=== PATIENT | male | born 1965 | race Caucasian/White ===

== ENCOUNTER 2016-12-02 12:12 | Emergency (ER) | payer MEDICAID ==
[~2016-12-02] VITALS: Ht 180.3 cm; Wt 84.0 kg
[~2016-12-02 12:12] MED LIST: ALBU6.7H INH; TRAM50TA3 PO
[2016-12-02] MEDS ORDERED: QUET300T2 PO (12:32)
[2016-12-02] MEDS ORDERED: CITA20TA19 PO (12:32)
[2016-12-02 13:58] VITALS: BP 121/68
== END 2016-12-02 16:23 | disposition home or self-care (01) ==
LOC: ER 14:36
DX: S81.802A Unspecified open wound, left lower leg, initial encounter (principal); F17.200 Nicotine dependence, unspecified, uncomplicated; F12.10 Cannabis abuse, uncomplicated; J45.909 Unspecified asthma, uncomplicated; X78.9XXA Intentional self-harm by unspecified sharp object, initial encounter; Y93.89 Activity, other specified; Y92.89 Other specified places as the place of occurrence of the external cause; Y99.8 Other external cause status
CPT/HCPCS: 99282

== ENCOUNTER 2016-12-22 13:55 | Emergency (ER) | payer MEDICAID ==
[~2016-12-22] VITALS: Ht 180.3 cm; Wt 82.0 kg
[~2016-12-22 13:55] MED LIST changes: +CITA20TA19 PO; +QUET300T2 PO
[2016-12-22] MEDS ORDERED: IBUPROFEN 600MG TABLET PO STA (21:33)
[2016-12-22 23:40] VITALS: BP 118/80
== END 2016-12-22 23:40 | disposition home or self-care (01) ==
LOC: ER 21:52
DX: S40.012A Contusion of left shoulder, initial encounter (principal); M54.9 Dorsalgia, unspecified; F12.10 Cannabis abuse, uncomplicated; W01.0XXA Fall on same level from slipping, tripping and stumbling without subsequent striking against object, initial encounter; Y93.89 Activity, other specified; Y92.89 Other specified places as the place of occurrence of the external cause; Y99.8 Other external cause status
CPT/HCPCS: 73030; 99284